=== PATIENT | female | born 1985 | race Caucasian/White ===

== ENCOUNTER → 2021-05-30 | Outpatient (CLI) | payer BC | END | disposition home or self-care (01) | LOC: LAB SHORT 07:29 → LAB 07:29 → PLD 07:29 | DX: L72.9 Follicular cyst of the skin and subcutaneous tissue, unspecified (principal) | CPT/HCPCS: 88304 ==

== ENCOUNTER → 2021-07-29 | Outpatient (CLI) | payer BC | END | disposition home or self-care (01) | LOC: LAB 15:44 → LAB SHORT 15:44 | DX: L08.9 Local infection of the skin and subcutaneous tissue, unspecified (principal) | CPT/HCPCS: 87070; 87205 ==

== ENCOUNTER 2021-12-27 06:12 | Day surgery (SDC) | payer BC ==
[~2021-12-27] VITALS: Ht 175.3 cm; Wt 81.5 kg
[~2021-12-27 06:12] MED LIST: ALBU90OI INH; ALDACTONE100 MG PO; CLON.5 PO; Celexa20 MG PO; HUMIRA40 MG/0.2 INJ
--- NOTE | 2021-12-27 07:32 | NUR ---
History, Chart, Medications and Allergies reviewed before start of procedure. Patient confirms NPO status and agrees with scheduled surgery. NO PREPARATIONS PER DR OCHOA. PT BELONGINGS PLACED UNDERNEATH [facility] BED FOR SAFE KEEPING.
--- NOTE | 2021-12-27 10:16 | NUR ---
Discharge instructions reviewed with patient. Patient verbalizes understanding. Copy given to patient to take home. Small amount of drainage around incision site. No drainage noted in garret drain. Pt instructed on how to care for and use garret drain, instructions and log sent home with pt.
--- NOTE | 2021-12-27 10:33 | NUR ---
PT DRESSED AND READY FOR DISCHARGE, WAITING FOR PT RIDE TO ARRIVE
--- NOTE | 2021-12-27 10:44 | NUR ---
PT STATES PAIN IS TOLERABLE AT A 3
--- NOTE | 2021-12-27 10:47 | NUR ---
PT PAIN SPIKED TO 6 WITH MOVEMENT. PT MEDICATED WITH PRESCRIBED NORCO
== END 2021-12-27 10:54 | disposition home or self-care (01) ==
LOC: ORSCMMR 06:12 → ORD 07:30 → ORSCMMR 07:30
PROVIDERS: Surgery
PROC: 0HX8XZZ Transfer Buttock Skin, External Approach (ICD-10-PCS; principal; 2021-12-27 07:30)
PROC: 0JB90ZZ Excision of Buttock Subcutaneous Tissue and Fascia, Open Approach (ICD-10-PCS; principal; 2021-12-27 07:30)
DX: L05.01 Pilonidal cyst with abscess (principal); F17.210 Nicotine dependence, cigarettes, uncomplicated; J45.909 Unspecified asthma, uncomplicated; F41.8 Other specified anxiety disorders; Z79.899 Other long term (current) drug therapy
CPT/HCPCS: A9270; J0690; J1100; J1885; J2270; J2405; J2704; J2710; J2795; J3010; J7120